=== PATIENT | female | born 1990 | race Two or more races ===

== ENCOUNTER 2020-01-29 16:07 | Emergency (ER) | payer OTHER, SELFPAY ==
[2020-01-29 16:10] VITALS: BP 142/66; PULSE 95; RESP 16; TEMP 36.7; O2SAT 99; BMI 40.8
--- NOTE | 2020-01-29 18:43 | ED_ITS ---
HPI - General Chief complaint: Vaginal Bleeding Stated complaint: MISCARRIAGE? Time Seen by Provider: 01/29/20 20:29 Source: patient Mode of arrival: ambulatory Limitations: no limitations History of Present Illness HPI Narrative: 29-year-old female presents with positive test at her OBGYN, states that she has been vaginally bleeding for several hours with large amounts of bright red blood with clotting. She does not describe any chest pain or pressure, palpitations, fevers, chills, abdominal pain, abdominal distention, dysuria, edema, assault, or trauma. MD Complaint: vaginal bleeding Onset (ago): hour(s) (3) Pain Consistency: constant Severity: moderate Quality: Cramping Relieving factors: none Exacerbating factors: none Associated symptoms: denies other symptoms Vaginal bleeding: heavy and clots Date of Last Menstrual Period: 12/26/19 Patient : Yes Number of Weeks : 5 OB History - Previous Pregnancies: miscarriage care: followed by OB Related Data : 3 Para: 1 Total number of abortions (spontaneous and elective): 1 Allergies Allergy/AdvReac Type Severity Reaction Status Date / Time No Known Allergies Allergy Verified 01/29/20 16:11 Review of Systems Review of Systems: Constitutional: No Fever, No Chills ENT/Mouth: No sore throat, No Rhinorrhea Eyes: No Eye Pain, No Redness Cardiovascular: No Chest Pain, No SOB Respiratory: No Cough, No Sputum, No Wheezing Gastrointestinal: No Nausea, No Vomiting, No Diarrhea, positive abdominal cramping pain, Genitourinary: positive irregular bleeding, No Dysuria, No Urinary Frequency, positive pelvic pain Musculoskeletal: No Myalgias Skin: No rash Neuro: No Weakness, No Headache Psych: No Anxiety/Panic, No Depression Heme/Lymph: No bruising, No Lymphadenopathy Endocrine: No Polyuria, No Polydipsia Yes all other systems are reviewed and are negative FOR[facility]LY [facility], [facility] Past Medical History Medical History (Updated 01/29/20 @ 23:51 by Candi Garcia NP) High cholesterol PCOS (polycystic ovarian syndrome) Prediabetes : 3 Para: 1 Total number of abortions (spontaneous and elective): 1 Date of Last Menstrual Period: 12/26/19 Social History Social History Alcohol intake: former Smoking Status: Former smoker Smoked in Last 30 Days: No Use of substances other than those prescribed or required for medical reasons: No Advance Directives: No Advance Directives Information Provided: Yes Physical Exam Vital Signs: Vital Signs: Last Vital Signs Temp 98.5 F 01/29/20 19:54 Pulse 77 01/29/20 22:11 Resp 14 01/29/20 22:11 BP 120/68 01/29/20 22:11 Pulse Ox 100 01/29/20 22:11 Body Mass Index 40.8 Course Course Course Narrative: 29-year-old female presents with vaginal bleeding with positive test. Plan of care is pelvic exam, CBC, Chem 7, AB0, a pelvic ultrasound. Ultrasound shows gestational sac without yolk or pole. 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 Patient does understand that if bleeding continue or if she feels worse to return to the emergency department. Reevaluation(s) Reevaluation #1: pelvic exam, urine and blood completed. Cervical os normal, no tissues of conception noted, brown dark red blood noted, appears to have clumping consistent with candidiasis. No adnexal tenderness or cervical motion tenderness. exam chaperoned by Stephanie Cannon ED lubrication technician. Will order ultrasound at this time. Time: 20:37 Procedures Perimortem Number of Weeks : 5 MDM - OB/Uterine Contractions MDM Narrative Medical decision making narrative: Threatened , ectopic Medical Records Attestation: I reviewed the patient's medical records. Lab Data Attestation: I reviewed the patient's lab results. Result diagrams: 01/29/20 19:49 01/29/20 19:49 Labs: Lab Results 01/29/20 01/29/20 01/29/20 Range/Units 19:49 19:49 19:49 WBC 12.5 H (4.8-10.8) X10*3/uL RBC 4.49 (4.20-5.50) X10*6/uL Hgb 12.5 (12.0-16.0) g/dl Hct 38.1 (37-47) % MCV 84.9 (80-98) fL MCH 27.8 (27.0-33.0) pg MCHC 32.8 (31.0-35.0) g/dl RDW 13.2 (11.0-16.0) % Plt Count 339 (160-400) X10*3/uL MPV 8.8 L (9.4-12.3) fL Immature Gran % (Auto) 0.3 (0.0-0.4) % Neut % (Auto) 69.1 (45-73) % Lymph % (Auto) 25.9 (20-40) % [place] % (Auto) 3.6 (2-11) % Eos % (Auto) 0.9 (0-4) % Baso % (Auto) 0.2 (0-2) % Lymph # (Auto) 3.2 (1.2-4.9) X10*3/uL [place] # (Auto) 0.5 (0.1-1.2) X10*3/uL Eos # (Auto) 0.1 (0.0-0.4) X10*3/uL Baso # (Auto) 0.0 (0.0-0.2) X10*3/uL Abs Immat Gran (auto) 0.04 H (0.00-0.03) X10*3/uL Absolute Neuts (auto) 8.6 H (2.0-8.3) X10*3/uL Absolute Nucleated RBC 0.000 (0.0-0.012) X10*3/uL Nucleated RBC % (auto) 0.0 (0.0-0.2) /100WBC PT 12.6 (10.8-13.0) SEC INR 1.1 (0.9-1.1) APTT 34.5 (24.1-38.0) SEC Sodium 135 (135-145) mmol/L Potassium 4.1 (3.3-5.1) mmol/l Chloride 104 (96-108) mmol/L Carbon Dioxide 20 L (22-29) mmol/L Anion Gap 15 (12-20) BUN 8 L (9-16) mg/dL Creatinine 0.64 (0.5-1.4) mg/dL Estim Creat Clear Calc 143.1 Estimated GFR > 60 Random Glucose 81 (60-115) mg/dL Calcium 9.0 (8.4-10.2) mg/dL Total Bilirubin 0.3 (0.0-1.0) mg/dL Direct Bilirubin < 0.2 (0.0-0.5) mg/dL AST 21 (5-31) U/L ALT 24 (0-31) U/L Alkaline Phosphatase 60 (39-117) U/L Total Protein 7.5 (6.5-8.0) g/dL Albumin 4.2 (3.5-5.0) g/dL Lipase 12 (8-78) U/L Beta HCG, Quant 91763 mIU/mL Urine Color Urine Appearance Urine pH (5.0-8.0) Ur Specific [place] (1.005-1.025) Urine Protein (NEG-TRACE) MG/DL Urine Glucose (UA) (NEG) MG/DL Urine Ketones (NEG) MG/DL Urine Blood (NEG) Urine Nitrite (NEG) Ur Leukocyte Esterase (NEG) Urine RBC (0) /HPF Urine WBC (0-4) /HPF Ur Squamous Epith Cells /LPF Urine Bacteria /LPF Hyaline Casts /LPF Urine Mucus /LPF Urine Yeast /HPF Blood Type 01/29/20 01/29/20 Range/Units 19:49 22:20 WBC (4.8-10.8) X10*3/uL RBC (4.20-5.50) X10*6/uL Hgb (12.0-16.0) g/dl Hct (37-47) % MCV (80-98) fL MCH (27.0-33.0) pg MCHC (31.0-35.0) g/dl RDW (11.0-16.0) % Plt Count (160-400) X10*3/uL MPV (9.4-12.3) fL Immature Gran % (Auto) (0.0-0.4) % Neut % (Auto) (45-73) % Lymph % (Auto) (20-40) % [place] % (Auto) (2-11) % Eos % (Auto) (0-4) % Baso % (Auto) (0-2) % Lymph # (Auto) (1.2-4.9) X10*3/uL [place] # (Auto) (0.1-1.2) X10*3/uL Eos # (Auto) (0.0-0.4) X10*3/uL Baso # (Auto) (0.0-0.2) X10*3/uL Abs Immat Gran (auto) (0.00-0.03) X10*3/uL Absolute Neuts (auto) (2.0-8.3) X10*3/uL Absolute Nucleated RBC (0.0-0.012) X10*3/uL Nucleated RBC % (auto) (0.0-0.2) /100WBC PT (10.8-13.0) SEC INR (0.9-1.1) APTT (24.1-38.0) SEC Sodium (135-145) mmol/L Potassium (3.3-5.1) mmol/l Chloride (96-108) mmol/L Carbon Dioxide (22-29) mmol/L Anion Gap (12-20) BUN (9-16) mg/dL Creatinine (0.5-1.4) mg/dL Estim Creat Clear Calc Estimated GFR Random Glucose (60-115) mg/dL Calcium (8.4-10.2) mg/dL Total Bilirubin (0.0-1.0) mg/dL Direct Bilirubin (0.0-0.5) mg/dL AST (5-31) U/L ALT (0-31) U/L Alkaline Phosphatase (39-117) U/L Total Protein (6.5-8.0) g/dL Albumin (3.5-5.0) g/dL Lipase (8-78) U/L Beta HCG, Quant mIU/mL Urine Color DARK YELLOW Urine Appearance CLEAR Urine pH 6.0 (5.0-8.0) Ur Specific [place] >= 1.030 H (1.005-1.025) Urine Protein TRACE (NEG-TRACE) MG/DL Urine Glucose (UA) NEG (NEG) MG/DL Urine Ketones NEG (NEG) MG/DL Urine Blood 3+ H (NEG) Urine Nitrite NEG (NEG) Ur Leukocyte Esterase NEG (NEG) Urine RBC 0-2 (0) /HPF Urine WBC 0-2 (0-4) /HPF Ur Squamous Epith Cells TRACE /LPF Urine Bacteria TRACE /LPF Hyaline Casts 0-2 /LPF Urine Mucus 3+ /LPF Urine Yeast TRACE /HPF Blood Type O Positive Imaging Data pelvic ultrasound: Attestation: I personally reviewed and interpreted this imaging study as follows: Radiologist's impression: TECHNIQUE: Transabdominal imaging. Transvaginal imaging. Spectral Doppler and color Doppler exam was utilized. LMP: Uncertain FINDINGS: UTERUS: There is a single intrauterine gestational sac. Average mean diameter of the gestational sac 0.8 cm. This correlates to dating of 5 weeks 3 days. Neither the yolk sac or pole is visualized. ADNEXA: Ovarian vascularity:Doppler demonstrates both arterial and venous vascular flow in the right and left ovary. No evidence of ovarian torsion. Right Ovary: 3.3 x 1.9 x 2.3 cm Left Ovary: 3.1 x 3.2 x 2.9 cm. Cul-de-sac: No Fluid US/US OB <= 14 weeks fetus IMPRESSION: Single intrauterine gestational sac with mean diameter of 0.8 cm. No yolk sac or pole are visualized. This gestational sac size correlates to dating of 5 weeks 3 days. Consider follow-up ultrasound in 2-3 weeks. Discharge Plan Discharge Clinical Impression: Threatened , Vaginal bleeding Patient Disposition: Home, Self-Care Instructions: Threatened Miscarriage (ED) Additional Instructions: you were evaluated for vaginal bleeding while . Your hCG level is 17,192. your ABO blood type is O positive. transvaginal OB ultrasound shows single intrauterine gestational sac with no yolk sac or pole visualized. The gestational sac correlates with 5 weeks 3 days. You must have an ultrasound in 2-3 weeks. You requested to follow-up with your own sand slinger operator. Please follow-up with [facility]. Thank you for choosing this emergency department for evaluation. Please follow-up with primary care physician as needed. Return to the emergency department for any new, concerning, or worsening symptoms. Interventions: ED Discharge Assessment Last Done: 01/30/20 00:06 Discharge Date/Time: 01/30/20 00:06
[2020-01-29 19:54] VITALS: BP 109/62; PULSE 80; RESP 16; TEMP 36.9; O2SAT 98
[2020-01-29 20:04] LABS: MANUAL DIFF FLAG NO
[2020-01-29 20:07] LABS: Basophils Percent Auto 0.2 % (0-2); Eosinophils Absolute Auto 0.1 X10*3/uL (0.0-0.4); Eosinophils Percent Auto 0.9 % (0-4); Hematocrit 38.1 % (37-47); Hemoglobin 12.5 g/dl (12.0-16.0); Imm Gran Abs Auto 0.04 X10*3/uL (0.00-0.03); Imm Gran Pct Auto 0.3 % (0.0-0.4); Lymphocytes Absolute Auto 3.2 X10*3/uL (1.2-4.9); Lymphocytes Percent Auto 25.9 % (20-40); Mean Corpuscular HGB Conc 32.8 g/dl (31.0-35.0); Mean Corpuscular Hemoglobin 27.8 pg (27.0-33.0); Mean Corpuscular Volume 84.9 fL (80-98); Mean Platelet Volume 8.8 fL (9.4-12.3); Monocytes Absolute Auto 0.5 X10*3/uL (0.1-1.2); Monocytes Percent Auto 3.6 % (2-11); Neutrophils Absolute Auto 8.6 X10*3/uL (2.0-8.3); Neutrophils Percent Auto 69.1 % (45-73); Platelet Count 339 X10*3/uL (160-400); Red Blood Count 4.49 X10*6/uL (4.20-5.50); Red Cell Distribution Width 13.2 % (11.0-16.0); White Blood Count 12.5 X10*3/uL (4.8-10.8)
[2020-01-29 20:15] LABS: INTERNATIONAL NORM RATIO 1.1 (0.9-1.1); Prothrombin Time 12.6 SEC (10.8-13.0)
[2020-01-29 20:17] LABS: Partial Thromboplastin Time 34.5 SEC (24.1-38.0)
--- NOTE | 2020-01-29 20:29 | US_ITS ---
EXAMINATION: ULTRASOUND PELVIC, COMPLETE CLINICAL INFORMATION: Vaginal bleeding COMPARISON: None. TECHNIQUE: Transabdominal imaging. Transvaginal imaging. Spectral Doppler and color Doppler exam was utilized. LMP: Uncertain FINDINGS: UTERUS: There is a single intrauterine gestational sac. Average mean diameter of the gestational sac 0.8 cm. This correlates to dating of 5 weeks 3 days. Neither the yolk sac or pole is visualized. ADNEXA: Ovarian vascularity:Doppler demonstrates both arterial and venous vascular flow in the right and left ovary. No evidence of ovarian torsion. Right Ovary: 3.3 x 1.9 x 2.3 cm Left Ovary: 3.1 x 3.2 x 2.9 cm. Cul-de-sac: No Fluid US/US OB <= 14 weeks fetus IMPRESSION: Single intrauterine gestational sac with mean diameter of 0.8 cm. No yolk sac or pole are visualized. This gestational sac size correlates to dating of 5 weeks 3 days. Consider follow-up ultrasound in 2-3 weeks.
--- NOTE | 2020-01-29 20:29 | US_ITS ---
EXAMINATION: ULTRASOUND PELVIC, COMPLETE CLINICAL INFORMATION: Vaginal bleeding COMPARISON: None. TECHNIQUE: Transabdominal imaging. Transvaginal imaging. Spectral Doppler and color Doppler exam was utilized. LMP: Uncertain FINDINGS: UTERUS: There is a single intrauterine gestational sac. Average mean diameter of the gestational sac 0.8 cm. This correlates to dating of 5 weeks 3 days. Neither the yolk sac or pole is visualized. ADNEXA: Ovarian vascularity:Doppler demonstrates both arterial and venous vascular flow in the right and left ovary. No evidence of ovarian torsion. Right Ovary: 3.3 x 1.9 x 2.3 cm Left Ovary: 3.1 x 3.2 x 2.9 cm. Cul-de-sac: No Fluid US/US OB transvaginal IMPRESSION: Single intrauterine gestational sac with mean diameter of 0.8 cm. No yolk sac or pole are visualized. This gestational sac size correlates to dating of 5 weeks 3 days. Consider follow-up ultrasound in 2-3 weeks.
[2020-01-29 20:34] LABS: Alanine Aminotransferase 24 U/L (0-31); Albumin Level 4.2 g/dL (3.5-5.0); Alkaline Phosphatase 60 U/L (39-117); Anion Gap 15 (12-20); Aspartate Amino Transferase 21 U/L (5-31); Bilirubin Direct < 0.2 mg/dL (0.0-0.5); Bilirubin Total 0.3 mg/dL (0.0-1.0); Blood Urea Nitrogen 8 mg/dL (9-16); Carbon Dioxide 20 mmol/L (22-29); Chloride 104 mmol/L (96-108); Creatinine Clr Calc Pharmacy 143.1; Estimated Glomerular Filt Rate > 60; Glucose Random 81 mg/dL (60-115); Lipase 12 U/L (8-78); Potassium 4.1 mmol/l (3.3-5.1); Sodium 135 mmol/L (135-145); Total Protein 7.5 g/dL (6.5-8.0)
[2020-01-29 21:06] LABS: HCG Quantitative 17192 mIU/mL
[2020-01-29 22:11] VITALS: BP 120/68; PULSE 77; RESP 14; O2SAT 100
[2020-01-29 23:28] LABS: Glucose Urine UA NEG (NEG); Leukocyte Esterase Urine NEG (NEG); Nitrite Urine NEG (NEG); Specific Gravity - Urine >= 1.030 (1.005-1.025); Urine Blood 3+ (NEG); Urine Ketones NEG (NEG); Urine Protein TRACE MG/DL (NEG-TRACE)
[2020-01-29 23:33] LABS: Appearance Urine CLEAR; Color Urine DARK YELLOW
[2020-01-29 23:58] LABS: Bacteria Urine TRACE /LPF; RBC Urine 0-2 /HPF (0); Squamous Epithelial Cell Urine TRACE /LPF; WBC Urine 0-2 /HPF (0-4)
[2020-01-29 23:59] LABS: Hyaline Casts Urine 0-2 /LPF; Mucus Urine 3+ /LPF
== END 2020-01-30 00:06 | disposition home or self-care (01) ==
PROVIDERS: Nurse Practitioner Family; Emergency Provider Emergency Medicine
DX: O20.0 Threatened abortion (principal); Z3A.01 Less than 8 weeks gestation of pregnancy
CPT/HCPCS: 36415; 76801; 76817; 80048; 80076; 81001; 81003; 83690; 84702; 85025; 85610; 85730; 86900; 86901; 99284

== ENCOUNTER 2020-07-15 16:14 | Emergency (ER) | payer OTHER, SELFPAY ==
--- NOTE | 2020-07-15 08:15 | ECG_ITS ---
Test Reason : CHEST PAIN Blood Pressure : / mmHG Vent. Rate : 071 BPM Atrial Rate : 071 BPM P-R Int : 190 ms QRS Dur : 098 ms QT Int : 414 ms P-R-T Axes : 035 047 030 degrees QTc Int : 449 ms Normal sinus rhythm Normal ECG When compared with ECG of 29-JUN-2018 16:53, No significant change was found Referred By: Eliza Mac Electronically Signed By:ANAT RIVAS
[2020-07-15 16:43] VITALS: BP 136/85; PULSE 71; RESP 18; TEMP 36.8; O2SAT 98; BMI 40.8
[2020-07-15 18:16] LABS: MANUAL DIFF FLAG NO
[2020-07-15 18:35] LABS: Basophils Percent Auto 0.2 % (0-2); Eosinophils Absolute Auto 0.1 X10*3/uL (0.0-0.4); Eosinophils Percent Auto 1.4 % (0-4); Hematocrit 37.7 % (37-47); Hemoglobin 12.6 g/dl (12.0-16.0); Imm Gran Abs Auto 0.02 X10*3/uL (0.00-0.03); Imm Gran Pct Auto 0.2 % (0.0-0.4); Lymphocytes Absolute Auto 2.7 X10*3/uL (1.2-4.9); Lymphocytes Percent Auto 32.1 % (20-40); Mean Corpuscular HGB Conc 33.4 g/dl (31.0-35.0); Mean Corpuscular Hemoglobin 28.7 pg (27.0-33.0); Mean Corpuscular Volume 85.9 fL (80-98); Mean Platelet Volume 8.7 fL (9.4-12.3); Monocytes Absolute Auto 0.4 X10*3/uL (0.1-1.2); Monocytes Percent Auto 4.6 % (2-11); Neutrophils Absolute Auto 5.2 X10*3/uL (2.0-8.3); Neutrophils Percent Auto 61.5 % (45-73); Platelet Count 342 X10*3/uL (160-400); Red Blood Count 4.39 X10*6/uL (4.20-5.50); Red Cell Distribution Width 12.7 % (11.0-16.0); White Blood Count 8.4 X10*3/uL (4.8-10.8)
--- NOTE | 2020-07-15 18:40 | ECG_ITS ---
Test Reason : PALPATATIONS Blood Pressure : / mmHG Vent. Rate : 071 BPM Atrial Rate : 071 BPM P-R Int : 192 ms QRS Dur : 096 ms QT Int : 410 ms P-R-T Axes : 056 048 035 degrees QTc Int : 445 ms Normal sinus rhythm Normal ECG When compared with ECG of 15-JUL-2020 17:06, No significant change was found Referred By: Eliza Mac Electronically Signed By:ANAT RIVAS
[2020-07-15 18:42] LABS: Alanine Aminotransferase 45 U/L (0-31); Albumin Level 4.4 g/dL (3.5-5.0); Alkaline Phosphatase 79 U/L (39-117); Anion Gap 14 (12-20); Aspartate Amino Transferase 40 U/L (5-31); Bilirubin Total 0.5 mg/dL (0.0-1.0); Blood Urea Nitrogen 10 mg/dL (9-16); Carbon Dioxide 26 mmol/L (22-29); Chloride 104 mmol/L (96-108); Creatinine Clr Calc Pharmacy 125.4; Estimated Glomerular Filt Rate > 60; Glucose Random 86 mg/dL (60-115); Potassium 4.2 mmol/L (3.3-5.1); Sodium 140 mmol/L (135-145); Total Protein 7.9 g/dL (6.5-8.0)
--- NOTE | 2020-07-15 18:42 | PC.NURSE ---
IN ROOM FOR EVAL IV PLACED AND LABS DRAWN TO LAB. PT ON MONITOR WITH A HR OF 76, PT RATING MID STERNAL CP 06/04. WILL CONTINUE TO MONITOR PT.
--- NOTE | 2020-07-15 18:46 | ED.CHESTPAIN ---
HPI - Chest Pain General Chief Complaint: Chest Pain Stated Complaint: chest pain Time Seen by Provider: 07/15/20 18:35 Source: patient Mode of arrival: ambulatory Limitations: no limitations History of Present Illness HPI narrative: Patient comes to emergency room complaining of palpitations. Patient states she has had this issue before, was recently taking off levothyroxine. Patient states that initially her TSH levels were borderline, started on levothyroxine for fertility treatment, recently taken off since her levels were within normal limits per patient. At this time, patient has no chest pain, no shortness of breath, complaining of intermittent palpitations, states her heart rate has been going up to 116 beats per minute and self resolves within 5 minutes. Patient states she has a cardiology consult pending in July Related Data Previous Rx's Medication Instructions Recorded miconazole nitrate [Monistat 1 1 appl VAGINAL DAILY #1 ea 01/30/20 Combo Pack] Allergies Allergy/AdvReac Type Severity Reaction Status Date / Time No Known Allergies Allergy Verified 01/29/20 16:11 Review of Systems Review of Systems: Constitutional : No Weight loss, No Fever, No Chills, No Night Sweats, No Fatigue, No Malaise ENT/Mouth : No Hearing loss, No Ear Pain, No Nasal Congestion, No Sinus Pain, No Hoarseness, No sore throat, No Rhinorrhea, No Swallowing Difficulty Eyes: No Eye Pain, No Swelling, No Redness, No Foreign Body, No Discharge, No Vision Changes Cardiovascular : No Chest Pain, No SOB, No Dyspnea on Exertion, No Orthopnea, No Edema, complaining of Palpitations Respiratory : No Cough, No Sputum, No Wheezing, No Smoke Exposure, No Dyspnea Gastrointestinal : No Nausea, No Vomiting, No Diarrhea, No Constipation, No abdominal Pain, No Hematochezia, No Melena Genitourinary : no irregular bleeding, No Dysuria, No Urinary Frequency, No Hematuria, No Urinary Incontinence, No Urgency, No Flank Pain, No Urinary Flow Changes, No Hesitancy Musculoskeletal : No joint pain, No Myalgias, No Joint Swelling Skin : No Skin Lesions, No rash Neuro : No Weakness, No Numbness, No Paresthesias, No Loss of Consciousness, No Dizziness, No Headache Psych : No Anxiety/Panic, No Depression, No SI/HI/AH/VH, No Social Issues, Heme/Lymph: No Bruising, No Bleeding,No Lymphadenopathy Endocrine : No Polyuria, No Polydipsia, No Temperature Intolerance [facility] Past Medical History Medical History High cholesterol PCOS (polycystic ovarian syndrome) Prediabetes Social History Social History Alcohol intake: former Smoking Status: Former smoker Advance Directives: No Advance Directives Information Provided: Yes Physical Exam Vital Signs: Vital Signs: Last Vital Signs Temp 98.2 F 07/15/20 16:43 Pulse 71 07/15/20 16:43 Resp 18 07/15/20 16:43 BP 136/85 07/15/20 16:43 Pulse Ox 98 07/15/20 16:43 Body Mass Index 40.8 Appearance: Alert. Oriented X3. No acute distress. Eyes: Pupils equal, round and reactive to light. ENT: Pharynx normal. Neck: Normal inspection. Neck supple. No lymph nodes noted. No crepitus CVS: Normal heart rate and rhythm. Pulses normal. Normal S1 and S2 Respiratory: No respiratory distress. Breath sounds normal. No Wheezing. No rales Abdomen: Soft and nontender. No rigidity. No distention. good BS x4 Skin: Skin warm and dry. Normal skin color. Normal skin turgor. Extremities: No lower extremity edema. No lower extremity edema. No Lacerations. No Rash Neuro: Oriented X 3. No motor deficit. No sensory deficit. Moving all extermities. No slurred speech. Course Course Course Narrative: I discussed the labs and EKG with the patient, no acute findings. Patient states she has had a cardiology consult pending at [facility] in early July. MDM - Chest Pain Lab Data Result diagrams: 07/15/20 18:04 07/15/20 18:04 Labs: Lab Results 07/15/20 07/15/20 07/15/20 Range/Units 18:04 18:04 18:04 WBC 8.4 (4.8-10.8) X10*3/uL RBC 4.39 (4.20-5.50) X10*6/uL Hgb 12.6 (12.0-16.0) g/dl Hct 37.7 (37-47) % MCV 85.9 (80-98) fL MCH 28.7 (27.0-33.0) pg MCHC 33.4 (31.0-35.0) g/dl RDW 12.7 (11.0-16.0) % Plt Count 342 (160-400) X10*3/uL MPV 8.7 L (9.4-12.3) fL Immature Gran % (Auto) 0.2 (0.0-0.4) % Neut % (Auto) 61.5 (45-73) % Lymph % (Auto) 32.1 (20-40) % [place] % (Auto) 4.6 (2-11) % Eos % (Auto) 1.4 (0-4) % Baso % (Auto) 0.2 (0-2) % Lymph # (Auto) 2.7 (1.2-4.9) X10*3/uL [place] # (Auto) 0.4 (0.1-1.2) X10*3/uL Eos # (Auto) 0.1 (0.0-0.4) X10*3/uL Baso # (Auto) 0.0 (0.0-0.2) X10*3/uL Abs Immat Gran (auto) 0.02 (0.00-0.03) X10*3/uL Absolute Neuts (auto) 5.2 (2.0-8.3) X10*3/uL Absolute Nucleated RBC 0.000 (0.0-0.012) X10*3/uL Nucleated RBC % (auto) 0.0 (0.0-0.2) /100WBC D-Dimer < 200 NG/ML Hold Blue Top SEE NOTE Sodium (135-145) mmol/L Potassium (3.3-5.1) mmol/L Chloride (96-108) mmol/L Carbon Dioxide (22-29) mmol/L Anion Gap (12-20) BUN (9-16) mg/dL Creatinine (0.5-1.4) mg/dL Estim Creat Clear Calc Estimated GFR Random Glucose (60-115) mg/dL Calcium (8.4-10.2) mg/dL Total Bilirubin (0.0-1.0) mg/dL AST (5-31) U/L ALT (0-31) U/L Alkaline Phosphatase (39-117) U/L Troponin I High Sens < 3.5 (<3.5-17.0) ng/L Total Protein (6.5-8.0) g/dL Albumin (3.5-5.0) g/dL TSH (0.32-4.0) uIU/mL 07/15/20 Range/Units 18:04 WBC (4.8-10.8) X10*3/uL RBC (4.20-5.50) X10*6/uL Hgb (12.0-16.0) g/dl Hct (37-47) % MCV (80-98) fL MCH (27.0-33.0) pg MCHC (31.0-35.0) g/dl RDW (11.0-16.0) % Plt Count (160-400) X10*3/uL MPV (9.4-12.3) fL Immature Gran % (Auto) (0.0-0.4) % Neut % (Auto) (45-73) % Lymph % (Auto) (20-40) % [place] % (Auto) (2-11) % Eos % (Auto) (0-4) % Baso % (Auto) (0-2) % Lymph # (Auto) (1.2-4.9) X10*3/uL [place] # (Auto) (0.1-1.2) X10*3/uL Eos # (Auto) (0.0-0.4) X10*3/uL Baso # (Auto) (0.0-0.2) X10*3/uL Abs Immat Gran (auto) (0.00-0.03) X10*3/uL Absolute Neuts (auto) (2.0-8.3) X10*3/uL Absolute Nucleated RBC (0.0-0.012) X10*3/uL Nucleated RBC % (auto) (0.0-0.2) /100WBC D-Dimer NG/ML Hold Blue Top Sodium 140 (135-145) mmol/L Potassium 4.2 (3.3-5.1) mmol/L Chloride 104 (96-108) mmol/L Carbon Dioxide 26 (22-29) mmol/L Anion Gap 14 (12-20) BUN 10 (9-16) mg/dL Creatinine 0.73 (0.5-1.4) mg/dL Estim Creat Clear Calc 125.4 Estimated GFR > 60 Random Glucose 86 (60-115) mg/dL Calcium 10.0 D (8.4-10.2) mg/dL Total Bilirubin 0.5 (0.0-1.0) mg/dL AST 40 H D (5-31) U/L ALT 45 H (0-31) U/L Alkaline Phosphatase 79 D (39-117) U/L Troponin I High Sens (<3.5-17.0) ng/L Total Protein 7.9 (6.5-8.0) g/dL Albumin 4.4 (3.5-5.0) g/dL TSH 1.78 (0.32-4.0) uIU/mL ECG Data ECG #1: Attestation: I personally reviewed and interpreted this ECG as follows: (Normal sinus rhythm, heart rate 71, no ST segment depression or elevation, QTC 445) Scores Heart Score History: -0- slightly suspicious ECG: -0- normal Age: -0- < or = 45 Risk factory: -0- no risk factors known Troponin: -0- < or = normal limit Score: 0 Risk: 1.7% Discharge Plan Discharge Clinical Impression: Atypical chest pain, Heart palpitations Patient Disposition: Home, Self-Care Instructions: Heart Palpitations (ED) Additional Instructions: Please follow-up with your primary care physician tomorrow. If you have any worsening or new symptoms, please return to the emergency room or call 911 Prescriptions: No Action miconazole nitrate [Monistat 1 Combo Pack] 1,200-2 mg-% kit 1 appl vaginal DAILY Qty: 1 RF: 0
[2020-07-15 19:01] LABS: Troponin-I High Sensitivity < 3.5 ng/L (<3.5-17.0)
[2020-07-15 19:04] LABS: D Dimer < 200 NG/ML
[2020-07-15 19:30] LABS: Thyroid Stimulating Hormone 1.78 uIU/mL (0.32-4.0)
== END 2020-07-15 20:11 | disposition home or self-care (01) ==
PROVIDERS: Emergency Provider Emergency Medicine; PCP Nurse Practitioner Family
DX: R07.9 Chest pain, unspecified (principal); R00.2 Palpitations; Z79.899 Other long term (current) drug therapy; Z87.891 Personal history of nicotine dependence
CPT/HCPCS: 36415; 80053; 84443; 84484; 85025; 85379; 93005; 99283

== ENCOUNTER 2022-08-22 06:43 | Emergency (ER) | payer MEDICAID, SELFPAY ==
--- NOTE | ~2022-08-22 | CT_ITS ---
EXAMINATION: CT ANGIOGRAM OF THE CHEST WITH AND WITHOUT CONTRAST (CT PULMONARY ANGIOGRAM FOR PE) CLINICAL INFORMATION: Reason for Exam SOB COMPARISON: None available. TECHNIQUE: Prior to contrast administration, noncontrast localization images were obtained. Subsequently, multidetector volumetric imaging was performed from the thoracic inlet to below the diaphragms following the administration of 65 mL Omnipaque 350 intravenous contrast. No contrast reaction reported Sagittal, coronal, and MIP oblique sagittal reformatted images were obtained on the CT workstation, uploaded to PACS, and reviewed. This CT examination was performed using dose optimization techniques as appropriate, variously including the following: *Automated exposure control *Adjustment of mA and/or kV according to patient size (this includes techniques or standardized protocols for targeted exams where dose is matched to indication/reason for exam; i.e. extremities or head) *Use of iterative reconstruction technique Total exam dose-length product 465 mGy-cm FINDINGS: QUALITY OF STUDY/CONTRAST BOLUS: Suboptimal. PULMONARY ARTERIES: No central or large segmental pulmonary embolus. THORACIC AORTA: No aneurysm. LUNG: No suspicious pulmonary nodule. No focal consolidation. Central airways are patent. PLEURA: No pleural effusion or pneumothorax. MEDIASTINUM: Normal heart size. No pericardial effusion. No hilar or mediastinal lymphadenopathy. No evidence of septal bowing or right heart strain. CORONARY ARTERY CALCIFICATION: None visualized on this study. CHEST WALL/AXILLA: No axillary or internal mammary lymphadenopathy. OSSEOUS STRUCTURES: No destructive bone lesions. UPPER ABDOMEN: Unremarkable. No reflux of contrast into the hepatic veins to suggest elevated right heart pressures. CT/CT angio chest PE protocol IMPRESSION: Suboptimal contrast bolus timing. No evidence of central or large segmental pulmonary embolus. No acute intrathoracic abnormality.
[2022-08-22 06:46] VITALS: BP 111/61; PULSE 91; RESP 18; TEMP 36.4; O2SAT 95; BMI 38.6
--- NOTE | 2022-08-22 06:49 | ED_ITS ---
HPI - General Adult General Chief complaint: General Medical Stated complaint: left sided pain, n/v Time Seen by Provider: 08/22/22 06:46 Source: patient and RN notes reviewed Mode of arrival: ambulatory Limitations: no limitations History of Present Illness HPI narrative: This is a 31-year-old female, with a past medical history of hyperlipidemia, PCOS and thyroid disease, presenting to the emergency department for evaluation of shortness of breath and left arm pain since yesterday. Patient reports that she was at home when she suddenly developed left arm pain and left-sided jaw pain, headache, dizziness, chills, and shortness of breath. Patient admits to having intermittent nausea and had 1 episode of vomiting patient denies any abdominal pain, palpitations, chest pain, weakness. Patient states that she took ibuprofen for her pain which has provided her with little relief. Patient is on control pills and recently had a section 2 months ago. No recent travel, history of blood clots or known cancer history. No other complaints or concerns at this time MD complaint: SOB, dizziness Onset (ago): day(s) Radiation: non-radiation Severity: mild Quality: aching Pain Consistency: constant Relieving factors: none Exacerbating factors: none Associated symptoms: fever/chills, headaches, nausea/vomiting and shortness of breath Treatments prior to arrival: none Related Data Previous Rx's Medication Instructions Recorded miconazole nitrate 1,200 mg-2 % 1 appl vaginal DAILY yeast 01/30/20 vaginal kit (Monistat 1 Combo Pack) infection #1 ea acetaminophen 325 mg tablet 650 mg PO QID PRN pain #30 tabs 08/22/22 (Tylenol) cyclobenzaprine 5 mg tablet 5 mg PO TID PRN muscle spasm #14 08/22/22 tabs ibuprofen 600 mg tablet 600 mg PO Q6-8H PRN pain #30 tabs 08/22/22 Allergies Allergy/AdvReac Type Severity Reaction Status Date / Time No Known Allergies Allergy Verified 01/29/20 16:11 Review of Systems Review of Systems: Constitutional: No Weight loss, No Fever, +Chills, No Night Sweats, No Fatigue, No Malaise ENT/Mouth: No Hearing loss, No Ear Pain, No Nasal Congestion, No Sinus Pain, No Hoarseness, No sore throat, No Rhinorrhea, No Swallowing Difficulty Eyes: No Eye Pain, No Swelling, No Redness, No Foreign Body, No Discharge, No Vision Changes Cardiovascular: No Chest Pain, + SOB, No Dyspnea on Exertion, No Orthopnea, No Edema, No Palpitations Respiratory: No Cough, No Sputum, No Wheezing, No Smoke Exposure, + Dyspnea Gastrointestinal: No Nausea, No Vomiting, No Diarrhea, No Constipation, No Abdominal pain, No Hematochezia, No Melena Genitourinary: No irregular bleeding, No Dysuria, No Urinary Frequency, No Hematuria, No Urinary Incontinence/retention, No Urgency, No Flank Pain, No Urinary Flow Changes, No Hesitancy Musculoskeletal: No joint pain, No Myalgias, No Joint Swelling Skin: No Skin Lesions, No rash Neuro: No Weakness, No Numbness, No Paresthesias, No Loss of Consciousness, + Dizziness, No Headache Psych: No Anxiety/Panic, No Depression, No SI/HI/AH/VH, No Social Issues, Heme/Lymph: No Bruising, No Bleeding,No Lymphadenopathy Endocrine: No Polyuria, No Polydipsia, No Temperature Intolerance Yes all other systems are reviewed and are negative Constitutional: Constitutional: Reports as per [facility] Past Medical History Medical History High cholesterol PCOS (polycystic ovarian syndrome) Prediabetes Social History Social History Alcohol intake: former Smoked in Last 30 Days: No Use of substances other than those prescribed or required for medical reasons: No Advance Directives: No Physical Exam ED Vital Signs: Vital Signs - 24 hr 08/22/22 06:46 08/22/22 07:08 08/22/22 08:07 Temperature 97.5 F 98.5 F Pulse Rate 91 89 67 Respiratory Rate 18 16 Blood Pressure 111/61 111/61 115/59 L Pulse Oximetry 95 97 Oxygen Delivery Method Room Air Room Air 08/22/22 08:07 08/22/22 08:08 08/22/22 09:15 Temperature 98.5 F Pulse Rate 78 79 68 Respiratory Rate 16 Blood Pressure 131/83 139/85 105/52 L Pulse Oximetry 98 Oxygen Delivery Method Room Air 08/22/22 11:38 Temperature 98.5 F Pulse Rate 73 Respiratory Rate 16 Blood Pressure 113/67 Pulse Oximetry 98 Oxygen Delivery Method Room Air BMI result Body Mass Index 38.6 Const General: cooperative, comfortable and no acute distress Orientation/consciousness: patient oriented x3 Limitations: no limitations HENMT Head: Yes normal to inspection, Yes normocephalic and Yes atraumatic Ears: hearing grossly normal bilaterally General nose exam: Normal external nose present Face and sinus: Yes normal facial exam Mouth: Normal oral and palatal mucosa present, oropharynx normal and moist mucous membranes Throat: Yes posterior oropharynx normal Eyes General: appearance normal, both eyes and all related structures Eyelids: Yes eyelids normal Conjunctivae: conjunctivae normal Sclerae: sclerae normal Pupils: Equal, round and reactive pupils present EOM: EOMs intact bilaterally Neck Neck: Yes normal visual inspection, Yes full ROM and Yes no lymphadenopathy Lymphatic: no lymphadenopathy noted Chest Chest palpation & inspection: normal inspection of the chest Resp Effort & Inspection: normal respiratory effort and able to speak in complete sentences Auscultation: clear to auscultation bilaterally, no crackles, no rales, no rhonchi and no wheezes Cardio Rate: regular rate Rhythm: regular rhythm Heart sounds: S1 normal heart sound present and S2 normal heart sound present GI Inspection: Yes normal to inspection Skin General skin exam: no rashes or lesions noted Trauma: no lacerations or abrasions Wounds: no wounds Neuro General: patient oriented x3 and moves all extremities Cranial nerves: Yes Equal, round and reactive pupils present Extrem Other: Tenderness to palpation along the left shoulder overlying the left bicipital groove. No bony tenderness along the left shoulder. Range of motion is full and intact. No overlying ecchymosis, edema, or erythema. General: Yes normal to inspection Right upper extremity: normal to inspection Left upper extremity: normal to inspection Right lower extremity: normal to inspection Left lower extremity: normal to inspection Course Reevaluation(s) Reevaluation #1: Patient with mild leukocytosis at 12 point, likely reactive, mild normocytic anemia, chemistry unremarkable, urine with blood, rbc's and wbc's however sample seems to be contaminated, given patient is asymptomatic will hold off until urine culture returns. Patient is not orthostatic. CTA chest obtained and unremarkable for pulmonary embolism. Patient's symptoms likely viral and left arm pain likely musculoskeletal. It is reassuring that she has pain upon palpation and has full range of motion of her left shoulder and arm. Discussed with patient all of these results. She is reassured and is feeling better after receiving medications. Advised to follow-up with primary care physician regarding this visit. Patient given return precautions if any new or worsening symptoms occur. Patient understands and agrees with plan. Medications Administered Discontinued Medications Generic Name Dose Route Start Last Admin Trade Name Megan PRN Reason Stop Dose Admin Acetaminophen 975 mg 08/22/22 07:06 08/22/22 07:58 Acetaminophen 325 Mg Tablet PO 08/22/22 07:07 975 mg ONCE ONE Administration Sodium Chloride 1,000 mls @ 999 mls/hr 08/22/22 07:06 08/22/22 09:06 Ns IV 08/22/22 08:06 Infused .Q1H1M ONE Infusion Iohexol 100 ml 08/22/22 09:07 08/22/22 09:08 Iohexol 350 Mg/Ml 100 Ml Infus..Btl IV 08/22/22 09:08 65 ml ONCE ONE Administration Medical Decision Making Medical Decision Making [facility] Narrative: 31-year-old female, with past medical history of hyperlipidemia and PCOS, presenting to the emergency department for evaluation of shortness of breath, dizziness, left arm pain, left jaw pain, chills, and 1 episode vomiting since yesterday. She states that the shortness of breath waxes and wanes in severity however is always present. Denies history of asthma. She had a section in is also on control pills concern for pulmonary embolism, wells criteria for pulmonary embolism is a 4.5 which classifies patient in moderate risk group, given percentage will order CT angio chest to rule out pulmonary embolism. patient's vitals are stable, 95% on room air, pulse 91 beats per minute. Plan: Labs, EKG, orthostatic vitals basic blood work, UA CT angio chest Differential Diagnosis Differential Diagnoses: The differential diagnosis associated with the presentation includes Pulmonary embolism, pneumothorax, viral syndrome, pneumonia, ACS Admission/Observation Consideration of admission/observation: Escalation of care including admission/observation considered Escalation of care including admission was considered given patient having sudden-onset shortness of breath left arm pain and jaw pain. Lab Data [facility] Lab Attestation statement: I reviewed the patient's lab results. See course for further details. 08/22/22 08:00 08/22/22 08:00 Labs: Lab Results 08/22/22 08/22/22 08/22/22 Range/Units 07:50 07:50 08:00 WBC 12.7 H (4.8-10.8) X10*3/uL RBC 4.16 L (4.20-5.50) X10*6/uL Hgb 11.3 L (12.0-16.0) g/dl Hct 34.0 L (37.0-47.0) % MCV 81.7 (80.0-98.0) fL MCH 27.2 (27.0-33.0) pg MCHC 33.2 (31.0-35.0) g/dl RDW 14.0 (11.0-16.0) % Plt Count 304 (160-400) X10*3/uL MPV 9.0 L (9.4-12.3) fL Immature Gran % (Auto) 0.3 (0.0-0.4) % Neut % (Auto) 83.9 H (45-73) % Lymph % (Auto) 10.8 L (20-40) % Warrick % (Auto) 4.5 (2-11) % Eos % (Auto) 0.2 (0-4) % Baso % (Auto) 0.3 (0-2) % Lymph # (Auto) 1.4 (1.2-4.9) X10*3/uL Warrick # (Auto) 0.6 (0.1-1.2) X10*3/uL Eos # (Auto) 0.0 (0.0-0.4) X10*3/uL Baso # (Auto) 0.0 (0.0-0.2) X10*3/uL Abs Immat Gran (auto) 0.04 H (0.00-0.03) X10*3/uL Absolute Neuts (auto) 10.7 H (2.0-8.3) x10*3/uL Absolute Nucleated RBC 0.000 (0.0-0.012) X10*3/uL Nucleated RBC % (auto) 0.0 (0.0-0.2) /100WBC PT (10.0-13.1) SEC INR (0.9-1.1) APTT (26.0-36.4) SEC Sodium (135-145) mmol/L Potassium (3.3-5.1) mmol/L Chloride (96-108) mmol/L Carbon Dioxide (22-29) mmol/L Anion Gap (12-20) BUN (9-16) mg/dL Creatinine (0.5-1.4) mg/dL Estim Creat Clear Calc Estimated GFR Random Glucose (60-115) mg/dL Calcium (8.4-10.2) mg/dL Total Bilirubin (0.0-1.0) mg/dL Direct Bilirubin (0.0-0.5) mg/dL AST (5-31) U/L ALT (0-31) U/L Alkaline Phosphatase (39-117) U/L Troponin I High Sens (<3.5-17.0) ng/L Total Protein (6.5-8.0) g/dL Albumin (3.5-5.0) g/dL Beta HCG, Quant mIU/mL Urine Color Dark Yellow Urine Appearance Cloudy Urine pH 5.5 (5.0-9.0) Ur Specific Eagar 1.025 (1.005-1.025) Urine Protein 30 (1+) H (Neg-Trace) mg/dL Urine Glucose (UA) Negative (Negative) mg/dL Urine Ketones Trace (Negative) mg/dL Urine Blood Large (3+) H (Negative) Urine Nitrite Negative (Negative) Ur Leukocyte Esterase Negative (Negative) Urine RBC 6-10 H (0-2) /HPF Urine WBC 6-10 H (0-5) /HPF Ur Squamous Epith Cells 11-20 (0-2) /HPF Urine Bacteria Trace (None Seen) Hyaline Casts 11-20 (0-2) /LPF Influenza Type A (PCR) NEGATIVE (Negative) Influenza Type B (PCR) NEGATIVE (Negative) RSV RNA Qual (PCR) NEGATIVE (Negative) SARS-CoV-2 RNA (RT-PCR) NEGATIVE (Negative) 08/22/22 08/22/22 08/22/22 Range/Units 08:00 08:00 08:00 WBC (4.8-10.8) X10*3/uL RBC (4.20-5.50) X10*6/uL Hgb (12.0-16.0) g/dl Hct (37.0-47.0) % MCV (80.0-98.0) fL MCH (27.0-33.0) pg MCHC (31.0-35.0) g/dl RDW (11.0-16.0) % Plt Count (160-400) X10*3/uL MPV (9.4-12.3) fL Immature Gran % (Auto) (0.0-0.4) % Neut % (Auto) (45-73) % Lymph % (Auto) (20-40) % Warrick % (Auto) (2-11) % Eos % (Auto) (0-4) % Baso % (Auto) (0-2) % Lymph # (Auto) (1.2-4.9) X10*3/uL Warrick # (Auto) (0.1-1.2) X10*3/uL Eos # (Auto) (0.0-0.4) X10*3/uL Baso # (Auto) (0.0-0.2) X10*3/uL Abs Immat Gran (auto) (0.00-0.03) X10*3/uL Absolute Neuts (auto) (2.0-8.3) x10*3/uL Absolute Nucleated RBC (0.0-0.012) X10*3/uL Nucleated RBC % (auto) (0.0-0.2) /100WBC PT 11.9 (10.0-13.1) SEC INR 1.0 (0.9-1.1) APTT 30.5 (26.0-36.4) SEC Sodium 139 (135-145) mmol/L Potassium 4.2 (3.3-5.1) mmol/L Chloride 109 H (96-108) mmol/L Carbon Dioxide 20 L (22-29) mmol/L Anion Gap 14 (12-20) BUN 10 (9-16) mg/dL Creatinine 0.71 (0.5-1.4) mg/dL Estim Creat Clear Calc 122.7 Estimated GFR > 60 Random Glucose 107 (60-115) mg/dL Calcium 9.0 D (8.4-10.2) mg/dL Total Bilirubin 0.5 (0.0-1.0) mg/dL Direct Bilirubin 0.1 (0.0-0.5) mg/dL AST 21 (5-31) U/L ALT 19 (0-31) U/L Alkaline Phosphatase 62 (39-117) U/L Troponin I High Sens < 2.7 (<3.5-17.0) ng/L Total Protein 6.6 (6.5-8.0) g/dL Albumin 3.5 (3.5-5.0) g/dL Beta HCG, Quant mIU/mL Urine Color Urine Appearance Urine pH (5.0-9.0) Ur Specific Eagar (1.005-1.025) Urine Protein (Neg-Trace) mg/dL Urine Glucose (UA) (Negative) mg/dL Urine Ketones (Negative) mg/dL Urine Blood (Negative) Urine Nitrite (Negative) Ur Leukocyte Esterase (Negative) Urine RBC (0-2) /HPF Urine WBC (0-5) /HPF Ur Squamous Epith Cells (0-2) /HPF Urine Bacteria (None Seen) Hyaline Casts (0-2) /LPF Influenza Type A (PCR) (Negative) Influenza Type B (PCR) (Negative) RSV RNA Qual (PCR) (Negative) SARS-CoV-2 RNA (RT-PCR) (Negative) 08/22/22 Range/Units 08:01 WBC (4.8-10.8) X10*3/uL RBC (4.20-5.50) X10*6/uL Hgb (12.0-16.0) g/dl Hct (37.0-47.0) % MCV (80.0-98.0) fL MCH (27.0-33.0) pg MCHC (31.0-35.0) g/dl RDW (11.0-16.0) % Plt Count (160-400) X10*3/uL MPV (9.4-12.3) fL Immature Gran % (Auto) (0.0-0.4) % Neut % (Auto) (45-73) % Lymph % (Auto) (20-40) % Warrick % (Auto) (2-11) % Eos % (Auto) (0-4) % Baso % (Auto) (0-2) % Lymph # (Auto) (1.2-4.9) X10*3/uL Warrick # (Auto) (0.1-1.2) X10*3/uL Eos # (Auto) (0.0-0.4) X10*3/uL Baso # (Auto) (0.0-0.2) X10*3/uL Abs Immat Gran (auto) (0.00-0.03) X10*3/uL Absolute Neuts (auto) (2.0-8.3) x10*3/uL Absolute Nucleated RBC (0.0-0.012) X10*3/uL Nucleated RBC % (auto) (0.0-0.2) /100WBC PT (10.0-13.1) SEC INR (0.9-1.1) APTT (26.0-36.4) SEC Sodium (135-145) mmol/L Potassium (3.3-5.1) mmol/L Chloride (96-108) mmol/L Carbon Dioxide (22-29) mmol/L Anion Gap (12-20) BUN (9-16) mg/dL Creatinine (0.5-1.4) mg/dL Estim Creat Clear Calc Estimated GFR Random Glucose (60-115) mg/dL Calcium (8.4-10.2) mg/dL Total Bilirubin (0.0-1.0) mg/dL Direct Bilirubin (0.0-0.5) mg/dL AST (5-31) U/L ALT (0-31) U/L Alkaline Phosphatase (39-117) U/L Troponin I High Sens (<3.5-17.0) ng/L Total Protein (6.5-8.0) g/dL Albumin (3.5-5.0) g/dL Beta HCG, Quant < 2 mIU/mL Urine Color Urine Appearance Urine pH (5.0-9.0) Ur Specific Eagar (1.005-1.025) Urine Protein (Neg-Trace) mg/dL Urine Glucose (UA) (Negative) mg/dL Urine Ketones (Negative) mg/dL Urine Blood (Negative) Urine Nitrite (Negative) Ur Leukocyte Esterase (Negative) Urine RBC (0-2) /HPF Urine WBC (0-5) /HPF Ur Squamous Epith Cells (0-2) /HPF Urine Bacteria (None Seen) Hyaline Casts (0-2) /LPF Influenza Type A (PCR) (Negative) Influenza Type B (PCR) (Negative) RSV RNA Qual (PCR) (Negative) SARS-CoV-2 RNA (RT-PCR) (Negative) Independent Interpretation I performed an independent interpretation of an: EKG Interpretation: EKG normal sinus rhythm with a ventricular rate of 86 beats per minute, ME interval 164, QTC 442, no ST elevation or depression. Radiology Impression Discussion of test interpretation with radiology: I have reviewed the r adiologist's reading. Radiologist Impression: EXAMINATION: CT ANGIOGRAM OF THE CHEST WITH AND WITHOUT CONTRAST (CT PULMONARY ANGIOGRAM FOR PE) CLINICAL INFORMATION: Reason for Exam SOB COMPARISON: None available.? ? TECHNIQUE: Prior to contrast administration, noncontrast localization images were obtained. Subsequently, multidetector volumetric imaging was performed from the thoracic inlet to below the diaphragms following the administration of 65 mL Omnipaque 350 intravenous contrast. No contrast reaction reported Sagittal, coronal, and MIP oblique sagittal reformatted images were obtained on the CT workstation, uploaded to PACS, and reviewed. This CT examination was performed using dose optimization techniques as appropriate, variously including the following: *Automated exposure control *Adjustment of mA and/or kV according to patient size (this includes techniques or standardized protocols for targeted exams where dose is matched to indication/reason for exam; i.e. extremities or head) *Use of iterative reconstruction technique Total exam dose-length product 465 mGy-cm FINDINGS: QUALITY OF STUDY/CONTRAST BOLUS: Suboptimal. PULMONARY ARTERIES: No central or large segmental pulmonary embolus.? THORACIC AORTA: No aneurysm. LUNG: No suspicious pulmonary nodule. No focal consolidation. Central airways are patent. PLEURA: No pleural effusion or pneumothorax. MEDIASTINUM: Normal heart size. No pericardial effusion.? No hilar or mediastinal lymphadenopathy.? No evidence of septal bowing or right heart strain. CORONARY ARTERY CALCIFICATION: None visualized on this study. CHEST WALL/AXILLA: No axillary or internal mammary lymphadenopathy. OSSEOUS STRUCTURES: No destructive bone lesions.? UPPER ABDOMEN: Unremarkable.? No reflux of contrast into the hepatic veins to suggest elevated right heart pressures. CT/CT angio chest PE protocol IMPRESSION: ? Suboptimal contrast bolus timing. No evidence of central or large segmental pulmonary embolus. No acute intrathoracic abnormality. 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 Discharge Plan Discharge Clinical Impression: Shortness of breath, Acute viral syndrome, Arm pain, left Patient Disposition: Home, Self-Care Instructions: Shortness of Breath (ED) Additional Instructions: Your Chest CT showed no pulmonary embolism, you tested negative for flu, COVID, and RSV. Your lab workup was reassuring today. Your EKG was reassuring. You likely pulled muscle in your left shoulder which is causing your pain. You may also be coming down with a viral syndrome causing you to have your symptoms. Drink plenty of fluids and get plenty of rest. Please take ibuprofen and Tylenol as needed for your symptoms. Take a muscle relaxant as prescribed. Do not drink alcohol or drive while taking this medication as this can cause drowsiness. Call your primary care physician today regarding this visit. If any new or worsening symptoms occur please return for re-evaluation Prescriptions: New cyclobenzaprine 5 mg tablet 5 mg PO TID PRN (Reason: muscle spasm) Qty: 14 0RF ibuprofen 600 mg tablet 600 mg PO Q6-8H PRN (Reason: pain) Qty: 30 0RF acetaminophen [Tylenol] 325 mg tablet 650 mg PO QID PRN (Reason: pain) Qty: 30 0RF No Action miconazole nitrate [Monistat 1 Combo Pack] 1,200-2 mg-% kit 1 appl vaginal DAILY Qty: 1 0RF Rx Instructions: as topical cream Interventions: ED Discharge Assessment Last Done: 08/22/22 11:49 Discharge Date/Time: 08/22/22 11:50
--- NOTE | 2022-08-22 07:02 | ECG_ITS ---
Test Reason : Chest Tightness Blood Pressure : / mmHG Vent. Rate : 086 BPM Atrial Rate : 086 BPM P-R Int : 164 ms QRS Dur : 094 ms QT Int : 370 ms P-R-T Axes : 066 040 024 degrees QTc Int : 442 ms Normal sinus rhythm Normal ECG When compared with ECG of 15-JUL-2020 19:49, No significant change was found Referred By: Macie Marquez Electronically Signed By:Tacos Gaston
[2022-08-22 07:08] VITALS: BP 111/61; PULSE 89; RESP 16; TEMP 36.9; O2SAT 97
[2022-08-22] MEDS: 0.9 % Sodium Chloride 1,000 ML 999 ML IV (07:51)
[2022-08-22] MEDS: Acetaminophen 325 MG TABLET 975 MG PO (07:58)
[2022-08-22 08:07] VITALS: BP 115/59; BP 131/83; PULSE 67; PULSE 78
[2022-08-22 08:08] VITALS: BP 139/85; PULSE 79
[2022-08-22 08:08] LABS: MANUAL DIFF FLAG NO
[2022-08-22 08:09] LABS: Basophils Percent Auto 0.3 % (0-2); Eosinophils Percent Auto 0.2 % (0-4); Hemoglobin 11.3 g/dl (12.0-16.0); Imm Gran Abs Auto 0.04 X10*3/uL (0.00-0.03); Imm Gran Pct Auto 0.3 % (0.0-0.4); Lymphocytes Absolute Auto 1.4 X10*3/uL (1.2-4.9); Lymphocytes Percent Auto 10.8 % (20-40); Mean Corpuscular HGB Conc 33.2 g/dl (31.0-35.0); Mean Corpuscular Hemoglobin 27.2 pg (27.0-33.0); Mean Corpuscular Volume 81.7 fL (80.0-98.0); Monocytes Absolute Auto 0.6 X10*3/uL (0.1-1.2); Monocytes Percent Auto 4.5 % (2-11); Neutrophils Absolute Auto 10.7 x10*3/uL (2.0-8.3); Neutrophils Percent Auto 83.9 % (45-73); Platelet Count 304 X10*3/uL (160-400); Red Blood Count 4.16 X10*6/uL (4.20-5.50); White Blood Count 12.7 X10*3/uL (4.8-10.8)
[2022-08-22 08:14] LABS: Appearance Urine Cloudy; Color Urine Dark Yellow; Glucose Urine UA Negative (Negative); Leukocyte Esterase Urine Negative (Negative); Nitrite Urine Negative (Negative); PH 5.5 (5.0-9.0); Specific Gravity - Urine 1.025 (1.005-1.025); UMIC TRIGGER UACC YES; Urine Blood Large (3+) (Negative); Urine Ketones Trace mg/dL (Negative); Urine Protein 30 (1+) mg/dL (Neg-Trace)
--- NOTE | 2022-08-22 08:15 | PC.NURSE ---
pt a&o x4, pleasant, calm, and cooperative. IV placed, labs drawn, EKG completed, orthostatics taken, UA obtained, pt medicated per apr. currently resting quietly on stretcher in no apparent distress. awaiting CT scan. rr even/unlabored. wctm
[2022-08-22 08:26] LABS: Bacteria Urine Trace (None Seen); UACC Culture Trigger YES
[2022-08-22 08:34] LABS: Alanine Aminotransferase 19 U/L (0-31); Albumin Level 3.5 g/dL (3.5-5.0); Alkaline Phosphatase 62 U/L (39-117); Anion Gap 14 (12-20); Aspartate Amino Transferase 21 U/L (5-31); Bilirubin Direct 0.1 mg/dL (0.0-0.5); Bilirubin Total 0.5 mg/dL (0.0-1.0); Blood Urea Nitrogen 10 mg/dL (9-16); Carbon Dioxide 20 mmol/L (22-29); Chloride 109 mmol/L (96-108); Creatinine Clr Calc Pharmacy 122.7; Estimated Glomerular Filt Rate > 60; Glucose Random 107 mg/dL (60-115); Potassium 4.2 mmol/L (3.3-5.1); Sodium 139 mmol/L (135-145); Total Protein 6.6 g/dL (6.5-8.0)
[2022-08-22 08:38] LABS: HCG Quantitative < 2 mIU/mL
[2022-08-22 08:38] LABS: Prothrombin Time 11.9 SEC (10.0-13.1); Troponin-I High Sensitivity < 2.7 ng/L (<3.5-17.0)
[2022-08-22 08:40] LABS: Partial Thromboplastin Time 30.5 SEC (26.0-36.4)
[2022-08-22 08:53] LABS: Influenza A PCR NEGATIVE (Negative); Influenza B PCR NEGATIVE (Negative); Resp Syncy Virus RNA Qual PCR NEGATIVE (Negative); SARS COV2 PCR INHOUSE NEGATIVE (Negative)
[2022-08-22] MEDS: iohexoL 350 MG/ML 100 ML INFUS..BTL IV (09:08)
[2022-08-22 09:15] VITALS: BP 105/52; PULSE 68; RESP 16; TEMP 36.9; O2SAT 98
[2022-08-22 11:38] VITALS: BP 113/67; PULSE 73; RESP 16; TEMP 36.9; O2SAT 98
--- NOTE | 2022-08-25 09:50 | ED.GENADULT ---
HPI - General Adult General Chief complaint: General Medical Stated complaint: left sided pain, n/v Time Seen by Provider: 08/22/22 06:46 Source: patient and RN notes reviewed Mode of arrival: ambulatory Limitations: no limitations History of Present Illness Quality: aching Relieving factors: none Exacerbating factors: none Associated symptoms: fever/chills, headaches, nausea/vomiting and shortness of breath Treatments prior to arrival: none Related Data Previous Rx's Medication Instructions Recorded miconazole nitrate 1,200 mg-2 % 1 appl vaginal DAILY yeast 01/30/20 vaginal kit (Monistat 1 Combo Pack) infection #1 ea acetaminophen 325 mg tablet 650 mg PO QID PRN pain #30 tabs 08/22/22 (Tylenol) cyclobenzaprine 5 mg tablet 5 mg PO TID PRN muscle spasm #14 08/22/22 tabs ibuprofen 600 mg tablet 600 mg PO Q6-8H PRN pain #30 tabs 08/22/22 Allergies Allergy/AdvReac Type Severity Reaction Status Date / Time No Known Allergies Allergy Verified 01/29/20 16:11 [facility] Past Medical History Medical History High cholesterol PCOS (polycystic ovarian syndrome) Prediabetes Social History Social History Alcohol intake: former Smoked in Last 30 Days: No Use of substances other than those prescribed or required for medical reasons: No Advance Directives: No Physical Exam ED Vital Signs: BMI result Body Mass Index 38.6 Course Course Course Narrative: 08/25/22 9:50am Urine culture positive for strep agalactiae. Left voicemail for patient to return call to ED. 17:14 patient returned call to ED. Updated on positive urine culture results. Prescription for cefpodoxime sent to pharmacy. Medications Administered Discontinued Medications Generic Name Dose Route Start Last Admin Trade Name Freq PRN Reason Stop Dose Admin Acetaminophen 975 mg 08/22/22 07:06 08/22/22 07:58 Acetaminophen 325 Mg Tablet PO 08/22/22 07:07 975 mg ONCE ONE Administration Sodium Chloride 1,000 mls @ 999 mls/hr 08/22/22 07:06 08/22/22 09:06 Ns IV 08/22/22 08:06 Infused .Q1H1M ONE Infusion Iohexol 100 ml 08/22/22 09:07 08/22/22 09:08 Iohexol 350 Mg/Ml 100 Ml Infus..Btl IV 08/22/22 09:08 65 ml ONCE ONE Administration Medical Decision Making Lab Data 08/22/22 08:00 08/22/22 08:00 Labs: Lab Results 08/22/22 08/22/22 08/22/22 Range/Units 07:50 07:50 08:00 WBC 12.7 H (4.8-10.8) X10*3/uL RBC 4.16 L (4.20-5.50) X10*6/uL Hgb 11.3 L (12.0-16.0) g/dl Hct 34.0 L (37.0-47.0) % MCV 81.7 (80.0-98.0) fL MCH 27.2 (27.0-33.0) pg MCHC 33.2 (31.0-35.0) g/dl RDW 14.0 (11.0-16.0) % Plt Count 304 (160-400) X10*3/uL MPV 9.0 L (9.4-12.3) fL Immature Gran % (Auto) 0.3 (0.0-0.4) % Neut % (Auto) 83.9 H (45-73) % Lymph % (Auto) 10.8 L (20-40) % [place] % (Auto) 4.5 (2-11) % Eos % (Auto) 0.2 (0-4) % Baso % (Auto) 0.3 (0-2) % Lymph # (Auto) 1.4 (1.2-4.9) X10*3/uL [place] # (Auto) 0.6 (0.1-1.2) X10*3/uL Eos # (Auto) 0.0 (0.0-0.4) X10*3/uL Baso # (Auto) 0.0 (0.0-0.2) X10*3/uL Abs Immat Gran (auto) 0.04 H (0.00-0.03) X10*3/uL Absolute Neuts (auto) 10.7 H (2.0-8.3) x10*3/uL Absolute Nucleated RBC 0.000 (0.0-0.012) X10*3/uL Nucleated RBC % (auto) 0.0 (0.0-0.2) /100WBC PT (10.0-13.1) SEC INR (0.9-1.1) APTT (26.0-36.4) SEC Sodium (135-145) mmol/L Potassium (3.3-5.1) mmol/L Chloride (96-108) mmol/L Carbon Dioxide (22-29) mmol/L Anion Gap (12-20) BUN (9-16) mg/dL Creatinine (0.5-1.4) mg/dL Estim Creat Clear Calc Estimated GFR Random Glucose (60-115) mg/dL Calcium (8.4-10.2) mg/dL Total Bilirubin (0.0-1.0) mg/dL Direct Bilirubin (0.0-0.5) mg/dL AST (5-31) U/L ALT (0-31) U/L Alkaline Phosphatase (39-117) U/L Troponin I High Sens (<3.5-17.0) ng/L Total Protein (6.5-8.0) g/dL Albumin (3.5-5.0) g/dL Beta HCG, Quant mIU/mL Urine Color Dark Yellow Urine Appearance Cloudy Urine pH 5.5 (5.0-9.0) Ur Specific [place] 1.025 (1.005-1.025) Urine Protein 30 (1+) H (Neg-Trace) mg/dL Urine Glucose (UA) Negative (Negative) mg/dL Urine Ketones Trace (Negative) mg/dL Urine Blood Large (3+) H (Negative) Urine Nitrite Negative (Negative) Ur Leukocyte Esterase Negative (Negative) Urine RBC 6-10 H (0-2) /HPF Urine WBC 6-10 H (0-5) /HPF Ur Squamous Epith Cells 11-20 (0-2) /HPF Urine Bacteria Trace (None Seen) Hyaline Casts 11-20 (0-2) /LPF Influenza Type A (PCR) NEGATIVE (Negative) Influenza Type B (PCR) NEGATIVE (Negative) RSV RNA Qual (PCR) NEGATIVE (Negative) SARS-CoV-2 RNA (RT-PCR) NEGATIVE (Negative) 08/22/22 08/22/2223 Range/Units 08:00 08:00 08:00 WBC (4.8-10.8) X10*3/uL RBC (4.20-5.50) X10*6/uL Hgb (12.0-16.0) g/dl Hct (37.0-47.0) % MCV (80.0-98.0) fL MCH (27.0-33.0) pg MCHC (31.0-35.0) g/dl RDW (11.0-16.0) % Plt Count (160-400) X10*3/uL MPV (9.4-12.3) fL Immature Gran % (Auto) (0.0-0.4) % Neut % (Auto) (45-73) % Lymph % (Auto) (20-40) % [place] % (Auto) (2-11) % Eos % (Auto) (0-4) % Baso % (Auto) (0-2) % Lymph # (Auto) (1.2-4.9) X10*3/uL [place] # (Auto) (0.1-1.2) X10*3/uL Eos # (Auto) (0.0-0.4) X10*3/uL Baso # (Auto) (0.0-0.2) X10*3/uL Abs Immat Gran (auto) (0.00-0.03) X10*3/uL Absolute Neuts (auto) (2.0-8.3) x10*3/uL Absolute Nucleated RBC (0.0-0.012) X10*3/uL Nucleated RBC % (auto) (0.0-0.2) /100WBC PT 11.9 (10.0-13.1) SEC INR 1.0 (0.9-1.1) APTT 30.5 (26.0-36.4) SEC Sodium 139 (135-145) mmol/L Potassium 4.2 (3.3-5.1) mmol/L Chloride 109 H (96-108) mmol/L Carbon Dioxide 20 L (22-29) mmol/L Anion Gap 14 (12-20) BUN 10 (9-16) mg/dL Creatinine 0.71 (0.5-1.4) mg/dL Estim Creat Clear Calc 122.7 Estimated GFR > 60 Random Glucose 107 (60-115) mg/dL Calcium 9.0 D (8.4-10.2) mg/dL Total Bilirubin 0.5 (0.0-1.0) mg/dL Direct Bilirubin 0.1 (0.0-0.5) mg/dL AST 21 (5-31) U/L ALT 19 (0-31) U/L Alkaline Phosphatase 62 (39-117) U/L Troponin I High Sens < 2.7 (<3.5-17.0) ng/L Total Protein 6.6 (6.5-8.0) g/dL Albumin 3.5 (3.5-5.0) g/dL Beta HCG, Quant mIU/mL Urine Color Urine Appearance Urine pH (5.0-9.0) Ur Specific [place] (1.005-1.025) Urine Protein (Neg-Trace) mg/dL Urine Glucose (UA) (Negative) mg/dL Urine Ketones (Negative) mg/dL Urine Blood (Negative) Urine Nitrite (Negative) Ur Leukocyte Esterase (Negative) Urine RBC (0-2) /HPF Urine WBC (0-5) /HPF Ur Squamous Epith Cells (0-2) /HPF Urine Bacteria (None Seen) Hyaline Casts (0-2) /LPF Influenza Type A (PCR) (Negative) Influenza Type B (PCR) (Negative) RSV RNA Qual (PCR) (Negative) SARS-CoV-2 RNA (RT-PCR) (Negative) 08/22/22 Range/Units 08:01 WBC (4.8-10.8) X10*3/uL RBC (4.20-5.50) X10*6/uL Hgb (12.0-16.0) g/dl Hct (37.0-47.0) % MCV (80.0-98.0) fL MCH (27.0-33.0) pg MCHC (31.0-35.0) g/dl RDW (11.0-16.0) % Plt Count (160-400) X10*3/uL MPV (9.4-12.3) fL Immature Gran % (Auto) (0.0-0.4) % Neut % (Auto) (45-73) % Lymph % (Auto) (20-40) % [place] % (Auto) (2-11) % Eos % (Auto) (0-4) % Baso % (Auto) (0-2) % Lymph # (Auto) (1.2-4.9) X10*3/uL [place] # (Auto) (0.1-1.2) X10*3/uL Eos # (Auto) (0.0-0.4) X10*3/uL Baso # (Auto) (0.0-0.2) X10*3/uL Abs Immat Gran (auto) (0.00-0.03) X10*3/uL Absolute Neuts (auto) (2.0-8.3) x10*3/uL Absolute Nucleated RBC (0.0-0.012) X10*3/uL Nucleated RBC % (auto) (0.0-0.2) /100WBC PT (10.0-13.1) SEC INR (0.9-1.1) APTT (26.0-36.4) SEC Sodium (135-145) mmol/L Potassium (3.3-5.1) mmol/L Chloride (96-108) mmol/L Carbon Dioxide (22-29) mmol/L Anion Gap (12-20) BUN (9-16) mg/dL Creatinine (0.5-1.4) mg/dL Estim Creat Clear Calc Estimated GFR Random Glucose (60-115) mg/dL Calcium (8.4-10.2) mg/dL Total Bilirubin (0.0-1.0) mg/dL Direct Bilirubin (0.0-0.5) mg/dL AST (5-31) U/L ALT (0-31) U/L Alkaline Phosphatase (39-117) U/L Troponin I High Sens (<3.5-17.0) ng/L Total Protein (6.5-8.0) g/dL Albumin (3.5-5.0) g/dL Beta HCG, Quant < 2 mIU/mL Urine Color Urine Appearance Urine pH (5.0-9.0) Ur Specific [place] (1.005-1.025) Urine Protein (Neg-Trace) mg/dL Urine Glucose (UA) (Negative) mg/dL Urine Ketones (Negative) mg/dL Urine Blood (Negative) Urine Nitrite (Negative) Ur Leukocyte Esterase (Negative) Urine RBC (0-2) /HPF Urine WBC (0-5) /HPF Ur Squamous Epith Cells (0-2) /HPF Urine Bacteria (None Seen) Hyaline Casts (0-2) /LPF Influenza Type A (PCR) (Negative) Influenza Type B (PCR) (Negative) RSV RNA Qual (PCR) (Negative) SARS-CoV-2 RNA (RT-PCR) (Negative) Discharge Plan Discharge Clinical Impression: Shortness of breath, Acute viral syndrome, Arm pain, left Patient Disposition: Home, Self-Care Instructions: Shortness of Breath (ED) Additional Instructions: Your Chest CT showed no pulmonary embolism, you tested negative for flu, COVID, and RSV. Your lab workup was reassuring today. Your EKG was reassuring. You likely pulled muscle in your left shoulder which is causing your pain. You may also be coming down with a viral syndrome causing you to have your symptoms. Drink plenty of fluids and get plenty of rest. Please take ibuprofen and Tylenol as needed for your symptoms. Take a muscle relaxant as prescribed. Do not drink alcohol or drive while taking this medication as this can cause drowsiness. Call your primary care physician today regarding this visit. If any new or worsening symptoms occur please return for re-evaluation Prescriptions: New cyclobenzaprine 5 mg tablet 5 mg PO TID PRN (Reason: muscle spasm) Qty: 14 0RF ibuprofen 600 mg tablet 600 mg PO Q6-8H PRN (Reason: pain) Qty: 30 0RF acetaminophen [Tylenol] 325 mg tablet 650 mg PO QID PRN (Reason: pain) Qty: 30 0RF No Action miconazole nitrate [Monistat 1 Combo Pack] 1,200-2 mg-% kit 1 appl vaginal DAILY Qty: 1 0RF Rx Instructions: as topical cream Interventions: ED Discharge Assessment Last Done: 08/22/22 11:49 Discharge Date/Time: 08/22/22 11:50
== END 2022-08-22 11:50 | disposition home or self-care (01) ==
PROVIDERS: Physician Assistant Medical; Emergency Provider Internal Medicine
DX: R06.02 Shortness of breath (principal); B34.9 Viral infection, unspecified; M79.602 Pain in left arm; R11.0 Nausea; R68.84 Jaw pain; E28.2 Polycystic ovarian syndrome; E78.5 Hyperlipidemia, unspecified; Z20.822 Contact with and (suspected) exposure to COVID-19
CPT/HCPCS: 0241U; 36415; 71275; 80048; 80076; 81001; 84484; 84702; 85025; 85610; 85730; 87086; 87147; 93005; 96360; 99284; 99285; Q9967

== ENCOUNTER 2022-11-24 14:46 | Emergency (ER) | payer MEDICAID, SELFPAY ==
--- NOTE | ~2022-11-24 | CT_ITS ---
EXAMINATION: CT ABDOMEN AND PELVIS WITHOUT CONTRAST CLINICAL INFORMATION: Left lower quadrant abdominal pain COMPARISON: CT abdomen and pelvis 08/31/2019 TECHNIQUE: Multidetector volumetric imaging was performed from the superior aspect of the liver through the pubic symphysis. Sagittal and coronal reformatted images were obtained on the technologist's workstation. This CT examination was performed using dose optimization techniques as appropriate, variously including the following: *Automated exposure control *Adjustment of mA and/or kV according to patient size (this includes techniques or standardized protocols for targeted exams where dose is matched to indication/reason for exam; i.e. extremities or head) *Use of iterative reconstruction technique DLP: 776 mGy-cm FINDINGS: LUNG BASES: The visualized lung bases are unremarkable. LIVER, GALLBLADDER, AND BILIARY TREE: The liver is normal in size, shape, and attenuation. No focal hepatic lesion or biliary ductal dilatation is present. There is diffuse rim calcification with thick wall in a contracted gallbladder. PANCREAS: Unremarkable. SPLEEN: Unremarkable. ADRENAL GLANDS: Unremarkable. KIDNEYS AND URETERS: The kidneys are normal in size, shape, and attenuation. There is a 2 mm noncalcified stone midpole right kidney coronal image 45/4 no caliectasis or hydronephrosis seen. There is no perinephric stranding. BLADDER: Unremarkable. GASTROINTESTINAL TRACT: The small and large bowel are unremarkable. Minimal scattered stool seen in the right colon. Appendix is normal caliber no free air or free fluid seen.. ABDOMINAL WALL: No significant hernia is appreciated. LYMPH NODES: No aggressive lytic or sclerotic process seen. VASCULAR: Unremarkable. PELVIC VISCERA: The uterus is anteverted. There is a small left adnexal 1.4 cm cyst. No free fluid seen. OSSEOUS STRUCTURES: No aggressive lytic or sclerotic process seen. There is mild posterior spondylosis T12-L1 disc level. CT/CT abdomen pelvis wo IV con IMPRESSION: 1. No acute intra-abdominal process seen. 2. Nonobstructive 2 mm stone midpole right kidney. No caliectasis or hydronephrosis. 3. Mild constipation. Normal appendix. Fleischner guidelines were followed.
[2022-11-24 14:56] VITALS: BP 132/86; PULSE 85; RESP 19; TEMP 36.1; O2SAT 98; BMI 38.2
--- NOTE | 2022-11-24 14:59 | ED.GENADULT ---
HPI - General Adult General Chief complaint: General Medical Stated complaint: l side abd pain into back Time Seen by Provider: 11/24/22 16:42 Source: patient and RN notes reviewed Limitations: no limitations History of Present Illness HPI narrative: 32-year-old female who has had a history of rectal fissure, constipation, presents complaining of left-sided abdominal pain. Patient states symptoms have been going on for nearly 2 months. She reports it is dull, achy and waxing waning in intensity. Patient states it may come on spontaneously last from several hours to several days and then resolved on its own. She has tried Tylenol and ibuprofen in the past without any relief. Patient does confirm that she has a history of constipation and takes a stool softener. She does not attribute any change in her symptoms when she is constipated or not. She denies any urinary symptoms. He does report a remote history of kidney stones. She also reports history of ovarian cyst at a younger age. She denies any fevers chills or vomiting. She does report intermittent episodes of nausea. She denies any trauma. She does report a history of colon disease in her family. She is scheduled to see a colorectal surgeon regarding her rectal fissure on Saturday. She has seen a furnace liner years ago due to GERD. Related Data Previous Rx's Medication Instructions Recorded miconazole nitrate 1,200 mg-2 % 1 appl vaginal DAILY yeast 01/30/20 vaginal kit (Monistat 1 Combo Pack) infection #1 ea acetaminophen 325 mg tablet 650 mg (2 x 325 mg) PO QID PRN 08/22/22 (Tylenol) pain #30 tabs cyclobenzaprine 5 mg tablet 5 mg PO TID PRN muscle spasm #14 08/22/22 tabs ibuprofen 600 mg tablet 600 mg PO Q6-8H PRN pain #30 tabs 08/22/22 cefpodoxime 100 mg tablet 100 mg PO BID #14 tabs 08/25/22 polyethylene glycol 3350 17 17 g PO DAILY #119 grams 11/24/22 gram/dose oral powder (Miralax) Allergies Allergy/AdvReac Type Severity Reaction Status Date / Time No Known Allergies Allergy Verified 01/29/20 16:11 Review of Systems Constitutional: Constitutional: Denies chills, Denies fever(s) and Denies headache(s) Eyes: Eyes: Denies change in vision and Denies other (No redness.) ENT: Denies headache(s), Denies nasal congestion, Denies nasal discharge, Denies neck pain and Denies sore throat Cardiovascular: Cardiovascular: Denies chest pain, Denies palpitations, Denies dyspnea, Denies dyspnea on exertion and Denies orthopnea Respiratory: Respiratory: Denies cough, Denies dyspnea and Denies dyspnea on exertion Gastrointestinal: Gastrointestinal: Reports abdominal pain, Denies melena, Denies hematochezia, Reports constipation, Denies excessive flatus, Denies diarrhea, Reports nausea and Denies vomiting Genitourinary: Genitourinary: Denies dysuria and Denies urinary urgency Musculoskeletal: Musculoskeletal: Denies back pain, Denies muscle weakness, Denies neck pain and Denies numbness Integumentary/Breasts: Skin/Breast: Denies rash Neurologic: Denies headache(s), Denies focal weakness and Denies numbness Psychiatric: Psychiatric: Denies depression Endocrine: Endocrine: Denies palpitations PMFSH Past Medical History Medical History High cholesterol PCOS (polycystic ovarian syndrome) Prediabetes Family History Family History Other Colon cancer Social History Social History Alcohol intake: former Advance Directives: No Advance Directives Information Provided: No Physical Exam ED Vital Signs: Vital Signs - 24 hr 11/24/22 14:56 11/24/22 17:35 Temperature 96.9 F 98.3 F Pulse Rate 85 71 Respiratory Rate 19 16 Blood Pressure 132/86 112/61 Pulse Oximetry 98 98 Oxygen Delivery Method Room Air Room Air BMI result Body Mass Index 38.2 Const General: cooperative, alert and awake Resp Auscultation: clear to auscultation bilaterally Cardio Rate: regular rate Rhythm: regular rhythm GI Other: Abdomen is diffusely soft. There is mild tenderness to the left mid flank and left lower quadrant. There is no rebound or guarding. There is no CVAT. General: Yes no CVA tenderness Back/Spine/Pelvis Other: No lumbar tenderness. Back: no CVA tenderness Course Course Course Narrative: RME- 32 year old female presents for evaluation of left lower abdominal pain for the last month. Plan for labs and a UA as well as Reevaluation(s) Reevaluation #1: Patient is well-appearing and resting comfortably at this time. Reviewed all labs and urinalysis, all within normal ranges. CT reviewed. Incidental finding of kidney stones in the right kidney. The patient was made aware of these. In addition, mild constipation noted. This could be contributing to the patient's symptoms. She also confirmed that she does not take any regular narcotic medications. She has had a long history of constipation and I have had extensive discussion with the patient that it is important to follow-up with her GI provider, who she confirms his at [facility]. She has their number and assures me that she will contact them on Saturday morning. In addition, the patient is willing to trial MiraLax instead of Dulcolax to help with regulating bowel movements. No evidence of acute infection and no evidence of sepsis. The patient feels comfortable with discharge plan home. She expressed understanding of all discharge instructions has no further questions at this time. Medications Administered Discontinued Medications Generic Name Dose Route Start Last Admin Trade Name Freq PRN Reason Stop Dose Admin Sodium Chloride 1,000 mls @ 999 mls/hr 11/24/22 17:00 11/24/22 18:05 Ns IV 11/24/22 18:00 Infused .Q1H1M ALFREDO Infusion Ketorolac Tromethamine 15 mg 11/24/22 16:49 11/24/22 16:58 Ketorolac Tromethamine 15 Mg/Ml Vial IVPUSH 11/24/22 16:50 15 mg ONCE ONE Administration Ondansetron HCl 4 mg 11/24/22 16:49 11/24/22 16:58 Ondansetron Hcl 4 Mg/2 Ml Vial IVPUSH 11/24/22 16:50 4 mg ONCE ONE Administration Medical Decision Making Medical Decision Making [facility] Narrative: 32-year-old female with prolonged left sided abdominal pain that has been waxing and waning. Given the patient's prolonged symptoms, will check CT. Labs have resulted at this time and are within normal ranges. Differential Diagnosis Differential Diagnoses: The differential diagnosis associated with the presentation includes Constipation Bowel obstruction Malignancy UTI Pyelonephritis Nephrolithiasis Ovarian cyst Lab Data [facility] Lab Attestation statement: I reviewed the patient's lab results. 11/24/22 15:06 11/24/22 15:06 Labs: Lab Results 11/24/22 11/24/22 Range/Units 15:06 15:27 WBC 7.9 (4.8-10.8) X10*3/uL RBC 4.64 (4.20-5.50) X10*6/uL Hgb 13.0 (12.0-16.0) g/dl Hct 38.5 (37.0-47.0) % MCV 83.0 (80.0-98.0) fL MCH 28.0 (27.0-33.0) pg MCHC 33.8 (31.0-35.0) g/dl RDW 12.8 (11.0-16.0) % Plt Count 325 (160-400) X10*3/uL MPV 8.7 L (9.4-12.3) fL Immature Gran % (Auto) 0.1 (0.0-0.4) % Neut % (Auto) 65.3 (45-73) % Lymph % (Auto) 26.2 (20-40) % [place] % (Auto) 4.8 (2-11) % Eos % (Auto) 3.2 (0-4) % Baso % (Auto) 0.4 (0-2) % Lymph # (Auto) 2.1 (1.2-4.9) X10*3/uL [place] # (Auto) 0.4 (0.1-1.2) X10*3/uL Eos # (Auto) 0.3 (0.0-0.4) X10*3/uL Baso # (Auto) 0.0 (0.0-0.2) X10*3/uL Abs Immat Gran (auto) 0.01 (0.00-0.03) X10*3/uL Absolute Neuts (auto) 5.2 (2.0-8.3) x10*3/uL Absolute Nucleated RBC 0.000 (0.0-0.012) X10*3/uL Nucleated RBC % (auto) 0.0 (0.0-0.2) /100WBC Sodium 139 (135-145) mmol/L Potassium 4.3 (3.3-5.1) mmol/L Chloride 104 (96-108) mmol/L Carbon Dioxide 24 (22-29) mmol/L Anion Gap 15 (12-20) BUN 9 (9-16) mg/dL Creatinine 0.72 (0.5-1.4) mg/dL Estim Creat Clear Calc 119.2 Estimated GFR > 60 Random Glucose 105 (60-115) mg/dL Calcium 10.2 D (8.4-10.2) mg/dL Total Bilirubin 0.2 (0.0-1.0) mg/dL AST 13 (5-31) U/L ALT 16 (0-31) U/L Alkaline Phosphatase 71 (39-117) U/L Total Protein 7.7 (6.5-8.0) g/dL Albumin 4.1 (3.5-5.0) g/dL Lipase 26 (8-78) U/L Urine Color Yellow Urine Appearance Clear Urine pH 7.0 (5.0-9.0) Ur Specific [place] 1.020 (1.005-1.025) Urine Protein Negative (Neg-Trace) mg/dL Urine Glucose (UA) Negative (Negative) mg/dL Urine Ketones Negative (Negative) mg/dL Urine Blood Negative (Negative) Urine Nitrite Negative (Negative) Ur Leukocyte Esterase Negative (Negative) Urine RBC 0-2 (0-2) /HPF Urine WBC 0-5 (0-5) /HPF Ur Squamous Epith Cells 0-2 (0-2) /HPF Urine Bacteria None Seen (None Seen) Hyaline Casts 0-2 (0-2) /LPF Urine Test NEGATIVE (NEGATIVE) Radiology Impression Discussion of test interpretation with radiology: I have reviewed the radiologist's reading. Radiologist Impression: [place] [id number] CT Scan Report Signed Patient: Zheng King MR#: [id number] : 1990 Acct:[id number] Age/Sex: 32 / F ADM Date: 11/24/22 Loc: HO.ED Attending Dr: Ordering Physician: Joel Karimi Date of Service: 11/24/22 Procedure(s): CT abdomen pelvis wo IV con Accession Number(s): [id number] cc: Physician,Unknown ; Joel Karimi~ EXAMINATION: CT ABDOMEN AND PELVIS WITHOUT CONTRAST CLINICAL INFORMATION: Left lower quadrant abdominal pain COMPARISON: CT abdomen and pelvis 08/31/2019 TECHNIQUE: Multidetector volumetric imaging was performed from the superior aspect of the liver through the pubic symphysis. Sagittal and coronal reformatted images were obtained on the technologist's workstation. This CT examination was performed using dose optimization techniques as appropriate, variously including the following: *Automated exposure control *Adjustment of mA and/or kV according to patient size (this includes techniques or standardized protocols for targeted exams where dose is matched to indication/reason for exam; i.e. extremities or head) *Use of iterative reconstruction technique DLP: 776 mGy-cm FINDINGS: LUNG BASES: The visualized lung bases are unremarkable. LIVER, GALLBLADDER, AND BILIARY TREE: The liver is normal in size, shape, and attenuation. No focal hepatic lesion or biliary ductal dilatation is present. There is diffuse rim calcification with thick wall in a contracted gallbladder. PANCREAS: Unremarkable. SPLEEN: Unremarkable. ADRENAL GLANDS: Unremarkable. KIDNEYS AND URETERS: The kidneys are normal in size, shape, and attenuation. There is a 2 mm noncalcified stone midpole right kidney coronal image 45/4 no caliectasis or hydronephrosis seen. There is no perinephric stranding. BLADDER: Unremarkable. GASTROINTESTINAL TRACT: The small and large bowel are unremarkable. Minimal scattered stool seen in the right colon. Appendix is normal caliber no free air or free fluid seen.. ABDOMINAL WALL: No significant hernia is appreciated. LYMPH NODES: No aggressive lytic or sclerotic process seen. VASCULAR: Unremarkable. PELVIC VISCERA: The uterus is anteverted. There is a small left adnexal 1.4 cm cyst. No free fluid seen. OSSEOUS STRUCTURES: No aggressive lytic or sclerotic process seen. There is mild posterior spondylosis T12-L1 disc level. CT/CT abdomen pelvis wo IV con IMPRESSION: 1. No acute intra-abdominal process seen. 2. Nonobstructive 2 mm stone midpole right kidney. No caliectasis or hydronephrosis. 3. Mild constipation. Normal appendix. Fleischner guidelines were followed. Dictated By: Haja Sethi MD Signed By: <Electronically signed by Haja Sethi MD in OV> 11/24/22 1611 DD/ [id number] TD/TT: [place]: [facility] [place] Discharge Plan Discharge Clinical Impression: Abdominal pain Qualifiers: Abdominal location: left lower quadrant Qualified Code(s): R10.32 - Left lower quadrant pain Constipation Qualifiers: Constipation type: unspecified constipation type Qualified Code(s): K59.00 - Constipation, unspecified Patient Disposition: Home, Self-Care Instructions: Constipation (ED), Acute Abdominal Pain (ED) Additional Instructions: Your blood work today was within normal ranges. Your CT scan shows mild constipation. This may be contributing to some of her abdominal pain. Also of note you have 2 small kidney stones in the right kidney. Drink plenty of fluids. MiraLax as directed. You may try 1 tsp in 8 oz of water for the 1st 2-3 days. If no improvement in symptoms, try 1 tsp in 8 oz of water twice daily for 2 or 3 days. Decrease the frequency if you develop loose stools or diarrhea. Follow-up with your colorectal surgeon at your current appointment on Saturday. Follow-up with your GI provider, at [facility]. Call Saturday morning to schedule follow-up appointment. Follow-up with your primary care provider. Call this week to schedule a follow-up appointment. Return to the emergency department if you have any worsening of symptoms, or any concerns. Get well soon! Prescriptions: New polyethylene glycol 3350 [Miralax] 17 gram/dose powder 17 g PO DAILY Qty: 119 0RF No Action miconazole nitrate [Monistat 1 Combo Pack] 1,200-2 mg-% kit 1 appl vaginal DAILY Qty: 1 0RF Rx Instructions: as topical cream cyclobenzaprine 5 mg tablet 5 mg PO TID PRN (Reason: muscle spasm) Qty: 14 0RF ibuprofen 600 mg tablet 600 mg PO Q6-8H PRN (Reason: pain) Qty: 30 0RF acetaminophen [Tylenol] 325 mg tablet 650 mg PO QID PRN (Reason: pain) Qty: 30 0RF cefpodoxime 100 mg tablet 100 mg PO BID Qty: 14 0RF Rx Instructions: must administer with a meal/food Interventions: ED Discharge Assessment Last Done: 11/24/22 18:40 Discharge Date/Time: 11/24/22 18:40
[2022-11-24 15:11] LABS: MANUAL DIFF FLAG NO
[2022-11-24 15:13] LABS: Basophils Percent Auto 0.4 % (0-2); Eosinophils Absolute Auto 0.3 X10*3/uL (0.0-0.4); Eosinophils Percent Auto 3.2 % (0-4); Hematocrit 38.5 % (37.0-47.0); Imm Gran Abs Auto 0.01 X10*3/uL (0.00-0.03); Imm Gran Pct Auto 0.1 % (0.0-0.4); Lymphocytes Absolute Auto 2.1 X10*3/uL (1.2-4.9); Lymphocytes Percent Auto 26.2 % (20-40); Mean Corpuscular HGB Conc 33.8 g/dl (31.0-35.0); Mean Platelet Volume 8.7 fL (9.4-12.3); Monocytes Absolute Auto 0.4 X10*3/uL (0.1-1.2); Monocytes Percent Auto 4.8 % (2-11); Neutrophils Absolute Auto 5.2 x10*3/uL (2.0-8.3); Neutrophils Percent Auto 65.3 % (45-73); Platelet Count 325 X10*3/uL (160-400); Red Blood Count 4.64 X10*6/uL (4.20-5.50); Red Cell Distribution Width 12.8 % (11.0-16.0); White Blood Count 7.9 X10*3/uL (4.8-10.8)
[2022-11-24 15:28] LABS: Alanine Aminotransferase 16 U/L (0-31); Albumin Level 4.1 g/dL (3.5-5.0); Alkaline Phosphatase 71 U/L (39-117); Anion Gap 15 (12-20); Aspartate Amino Transferase 13 U/L (5-31); Bilirubin Total 0.2 mg/dL (0.0-1.0); Blood Urea Nitrogen 9 mg/dL (9-16); Calcium 10.2 mg/dL (8.4-10.2); Carbon Dioxide 24 mmol/L (22-29); Chloride 104 mmol/L (96-108); Creatinine Clr Calc Pharmacy 119.2; Estimated Glomerular Filt Rate > 60; Glucose Random 105 mg/dL (60-115); Lipase 26 U/L (8-78); Potassium 4.3 mmol/L (3.3-5.1); Sodium 139 mmol/L (135-145); Total Protein 7.7 g/dL (6.5-8.0)
[2022-11-24 15:49] LABS: Appearance Urine Clear; Color Urine Yellow; Glucose Urine UA Negative (Negative); Leukocyte Esterase Urine Negative (Negative); Nitrite Urine Negative (Negative); Urine Blood Negative (Negative); Urine Ketones Negative (Negative); Urine Protein Negative (Neg-Trace)
[2022-11-24 15:50] LABS: UPreg QC Valid YES; Urine Pregnancy NEGATIVE (NEGATIVE)
[2022-11-24 15:51] LABS: Bacteria Urine None Seen (None Seen); Hyaline Casts Urine 0-2 /LPF (0-2); RBC Urine 0-2 /HPF (0-2); Squamous Epithelial Cell Urine 0-2 /HPF (0-2); WBC Urine 0-5 /HPF (0-5)
[2022-11-24] MEDS: ondansetron HCL 4 MG/2 ML VIAL IVPUSH (16:58)
[2022-11-24] MEDS: 0.9 % Sodium Chloride 1,000 ML 999 ML IV (16:58)
[2022-11-24] MEDS: Ketorolac Tromethamine 15 MG/ML VIAL IVPUSH (16:58)
[2022-11-24 17:35] VITALS: BP 112/61; PULSE 71; RESP 16; TEMP 36.8; O2SAT 98
== END 2022-11-24 18:40 | disposition home or self-care (01) ==
PROVIDERS: Physician Assistant; Emergency Provider Emergency Medicine
DX: R10.32 Left lower quadrant pain (principal); K59.00 Constipation, unspecified; N20.0 Calculus of kidney; R73.03 Prediabetes; E78.5 Hyperlipidemia, unspecified; E28.2 Polycystic ovarian syndrome
CPT/HCPCS: 36415; 74176; 80053; 81001; 81025; 83690; 85025; 96361; 96374; 96375; 99284; J1885; J2405